=== PATIENT | male | born 1990 | race Caucasian/White ===

== ENCOUNTER 2017-04-06 11:55 | Emergency (ER) | payer BC, OTHER, SELFPAY ==
[~2017-04-06] VITALS: Ht 180.3 cm; Wt 77.3 kg
[2017-04-06 12:06] VITALS: BP 154/87
[2017-04-06] MEDS ORDERED: NS 1,000 ML IV ONE (12:30)
[2017-04-06] MEDS ORDERED: ADACEL/BOOSTRIX VACCINE (DIPHTH/PERTUSS/ACELL/TETANUS)0.5ML SYR (90715) IM ONE (12:30)
[2017-04-06] MEDS ORDERED: ceFAZolin SOD 1 GM in D5W MINI-BAG PLUS 50 ML IV ONE ×2 (12:30→13:30)
[2017-04-06] MEDS ORDERED: ceFAZolin 1GM INJ (J0690) As Ordered ONE (12:50)
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
[2017-04-06] MEDS: MORPHINE 4 MG/ML 1ML SYRINGE IV PRN ×2 (13:20→13:30)
[2017-04-06 13:49] LABS: INR 1.04
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
[2017-04-06 13:55] LABS: ALBUMIN 3.9 GM/DL (3.2-5.2); ALBUMIN/GLOBULIN RATIO 1.26 (1.00-1.93); ALKALINE PHOSPHATASE 77 U/L (45-117); ALT/SGPT 29 U/L (12-78); ANION GAP 8 MEQ/L (8-16); AST/SGOT 18 U/L (15-37); BILIRUBIN,DIRECT 0.2 MG/DL (0.0-0.2); BILIRUBIN,TOTAL 0.7 MG/DL (0.2-1.0); BLOOD UREA NITROGEN 16 MG/DL (7-18); CALCIUM LEVEL 8.9 MG/DL (8.5-10.1); CARBON DIOXIDE LEVEL 25 MEQ/L (21-32); CHLORIDE LEVEL 110 MEQ/L (98-107); CREATININE FOR GFR 1.15 MG/DL (0.70-1.30); GLOMERULAR FILTRATION RATE > 60.0 (>60); GLUCOSE, FASTING 104 MG/DL (70-105); POTASSIUM SERUM 3.8 MEQ/L (3.5-5.1); SODIUM LEVEL 143 MEQ/L (136-145)
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
[2017-04-06] MEDS ORDERED: LIDOCAINE 2% MDV 20 ML VIAL SC ONE (14:00)
[2017-04-06 14:04] LABS: ADD MANUAL DIFFER YES; MEAN CORPUSCULAR HEMOGLOBIN 31.9 pg (27.0-33.0); MEAN CORPUSCULAR HGB CONC 36.2 g/dl (32.0-36.5); PLATELET COUNT, AUTOMATED 291 k/mm3 (150-450); RED CELL DISTRIBUTION WIDTH 11.9 % (11.5-14.5)
[2017-04-06 14:22] LABS: BANDS 2 % (< 11)
[2017-04-06] MEDS ORDERED: MORPHINE 4 MG/ML 1ML SYRINGE IV ONE (14:30)
[2017-04-06] MEDS ORDERED: POLYSPORIN OPHTH OINT 3.5 GM As Ordered ONE (14:32)
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
[2017-04-06] MEDS ORDERED: PERC5TAB12 PO (14:52)
[2017-04-06] MEDS ORDERED: KEFL500C17 PO (14:52)
== END 2017-04-06 15:10 | disposition home or self-care (01) ==
LOC: EDBD 11:55 → M ED 11:55
DX: S92.345A Nondisplaced fracture of fourth metatarsal bone, left foot, initial encounter for closed fracture (principal); S91.012A Laceration without foreign body, left ankle, initial encounter; Z72.0 Tobacco use; V28.0XXA Motorcycle driver injured in noncollision transport accident in nontraffic accident, initial encounter; Y92.410 Unspecified street and highway as the place of occurrence of the external cause; Y93.89 Activity, other specified; Y99.9 Unspecified external cause status
CPT/HCPCS: 12002; 70450; 72125; 73110; 73590; 73610; 73630; 73700; 80048; 80076; 85025; 85610; 90471; 90715; 96361; 96365; 96375; 96376; 99284; G0480; J0690

== ENCOUNTER 2017-04-13 10:19 | Inpatient (IN) | payer OTHER ==
[~2017-04-13] VITALS: Ht 180.3 cm; Wt 74.7 kg
[~2017-04-13 10:19] MED LIST: KEFL500C17 PO; PERC5TAB12 PO
[2017-04-13] MEDS ORDERED: NS 1,000 ML IV ONE (11:30)
[2017-04-13] MEDS ORDERED: MORPHINE 4 MG/ML 1ML SYRINGE IV ONE (11:30)
[2017-04-13 12:10] LABS: BASO % 0.4 % (0.0-1.0); EOS # 0.1 K/mm3 (0.0-0.50); EOS % 1.5 % (0.0-3.0); LARGE UNSTAINED CELL # 0.1 K/mm3 (0.0-0.4); LARGE UNSTAINED CELL % 1.3 % (0.0-4.0); LYMPH # 1.4 K/mm3 (1.5-6.5); LYMPH % 18.9 % (24.0-44.0); MEAN CORPUSCULAR HEMOGLOBIN 31.8 pg (27.0-33.0); MEAN CORPUSCULAR HGB CONC 35.8 g/dl (32.0-36.5); MEAN CORPUSCULAR VOLUME 88.9 fl (80.0-96.0); MONO # 0.5 K/mm3 (0.0-0.8); MONO % 6.3 % (0.0-5.0); NEUTROPHILS # 5.4 K/mm3 (1.8-7.7); NEUTROPHILS % 71.6 % (36.0-66.0); PLATELET COUNT, AUTOMATED 314 k/mm3 (150-450); RED CELL DISTRIBUTION WIDTH 12.2 % (11.5-14.5); WHITE BLOOD COUNT 7.5 K/mm3 (4.0-10.0)
[2017-04-13] MEDS ORDERED: VANCOMYCIN HCL 1,000 MG, VIAL MATE ADAPTER 1 EACH in D5W 250 ML IV ONE ×2 (13:00→14:45)
[2017-04-13 13:21] LABS: ANION GAP 8 MEQ/L (8-16); BLOOD UREA NITROGEN 18 MG/DL (7-18); CALCIUM LEVEL 8.8 MG/DL (8.5-10.1); CARBON DIOXIDE LEVEL 28 MEQ/L (21-32); CHLORIDE LEVEL 103 MEQ/L (98-107); CREATININE FOR GFR 0.87 MG/DL (0.70-1.30); GLOMERULAR FILTRATION RATE > 60.0 (>60); GLUCOSE, FASTING 87 MG/DL (70-105); POTASSIUM SERUM 4.3 MEQ/L (3.5-5.1); SODIUM LEVEL 139 MEQ/L (136-145)
[2017-04-13] MEDS ORDERED: PERC5TAB12 PO (14:07)
[2017-04-13] MEDS ORDERED: CEPH500C PO (14:07)
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
[2017-04-13] MEDS ORDERED: ONDANSETRON 4MG/2ML VIAL (J2405) IV PRN (14:45)
[2017-04-13] MEDS ORDERED: MAXIMUM TYLENOL (APAP) = 4GM/24H XX SCH (14:45)
[2017-04-13] MEDS ORDERED: ACETAMINOPHEN TAB 650MG DOSE (2X325MG) PO PRN (14:45)
[2017-04-13] MEDS ORDERED: NORCO, ANEXSIA 5/325MG TABLET (HYDROcodone/ACETAMINOPHEN) PO PRN ×2 (14:45)
[2017-04-13] MEDS: MORPHINE 4 MG/ML 1ML SYRINGE IV PRN ×2 (17:17→20:28)
[2017-04-13 17:30] VITALS: BP 177/92
[2017-04-13] MEDS: PERCOCET 5MG/325MG TAB PO PRN ×2 (18:17→22:45)
[2017-04-13] MEDS: ENOXAPARIN 40 MG/0.4 ML SYRINGE (J1650) SC SCH (18:35)
--- NOTE | 2017-04-13 18:52 | PHACANCOPD ---
PHARMACY VANCOMYCIN DOSING Pt Demographics Demographics Patient Age:26 , Weight:77.270 , Gender: male Adjusted Body Weight Date: 04/13/17, Adjusted Body Weight: [77.2] Kg Events Past 24 Hours Events Past 24 Hours: NO: Dialysis, Diuretic Therapy, Change in CrCl, Fever, Elevation in WBC, Pending Diagnostics, Pending Procedures, Other Vancomycin Vancomycin indication: CELLULITIS Vancomycin Target Ranges: 15-20 mcg/ml Vancomycin Load Y/N: Yes Load Dose Date Time Vancomycin Load Dose: 2G Date: 04/13/17 Time: 1800 COMPLETED Vancomycin Dose Date: 04/13/17. Current Vancomycin Dose: [1G IV Q8H] Intermittent Dosing?: No Labs Labs Item Value Date Time Creatinine 0.87 MG/DL 04/13/17 1240 C-Reactive Protein, Quantitative 2.19 MG/DL H 04/13/17 1240 Vital Signs Label Value Date Time Patient Temperature 99.4 degrees F 04/13/17 1730 Temperature Source Temporal 04/13/17 1730 Micro Microbiology 04/13/17 Blood Culture, Received Pending 04/13/17 Blood Culture, Received Pending Creatinine Clearance Date:04/13/17. Creatinine Clearance: [139.4ML/MIN.]. Pending Labs BLOOD CULTURE, vancomycin trough 04/14 @1600 Assessment and Plan Maintaining Current Dose?: Yes Reason for dose change: Change in serum Cr, No Dose Change Pharmacist Note Pharmacist Note Date: 04/13/17. Pharmacist note: Pt is a 26 year old male being treated for cellulitis goal trough 15-20mcg/ml with no history of vancomycin therapy here at [facility]. Pt received 1g in the ER 04/13 @1300 and another 1g in Peds @1800 to complete his loading. Maintenance therapy will consist of 1g iv q8 hours starting 04/14/17 @0100. A trough is scheduled for 1600 04/14. We will continue to monitor and adjust dose as needed. ASHLYN STERLING PHARMACY Apr 13, 2017 18:52
[2017-04-13 20:00] VITALS: BP 168/91
[2017-04-14] VITALS: BP 138/78
[2017-04-14] MEDS: VANCOMYCIN HCL 1,000 MG, VIAL MATE ADAPTER 1 EACH in D5W 250 ML IV SCH ×3 (00:36→23:05)
[2017-04-14] MEDS: PERCOCET 5MG/325MG TAB PO PRN ×3 (06:25→17:35)
[2017-04-14 07:22] LABS: MEAN CORPUSCULAR HEMOGLOBIN 31.7 pg (27.0-33.0); MEAN CORPUSCULAR HGB CONC 35.1 g/dl (32.0-36.5); MEAN CORPUSCULAR VOLUME 90.2 fl (80.0-96.0); WHITE BLOOD COUNT 7.1 K/mm3 (4.0-10.0)
[2017-04-14 07:45] LABS: ALBUMIN 3.6 GM/DL (3.2-5.2); ALKALINE PHOSPHATASE 73 U/L (45-117); ALT/SGPT 36 U/L (12-78); ANION GAP 8 MEQ/L (8-16); AST/SGOT 19 U/L (15-37); BILIRUBIN,TOTAL 0.5 MG/DL (0.2-1.0); BLOOD UREA NITROGEN 14 MG/DL (7-18); CARBON DIOXIDE LEVEL 29 MEQ/L (21-32); CHLORIDE LEVEL 105 MEQ/L (98-107); CREATININE FOR GFR 0.78 MG/DL (0.70-1.30); GLOMERULAR FILTRATION RATE > 60.0 (>60); GLUCOSE, FASTING 94 MG/DL (70-105); POTASSIUM SERUM 4.4 MEQ/L (3.5-5.1); SODIUM LEVEL 142 MEQ/L (136-145); TOTAL PROTEIN 6.6 GM/DL (6.4-8.2)
[2017-04-14 08:00] VITALS: BP 158/96
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
[2017-04-14] MEDS: ENOXAPARIN 40 MG/0.4 ML SYRINGE (J1650) SC SCH (08:41)
[2017-04-14] MEDS: MORPHINE 4 MG/ML 1ML SYRINGE IV PRN (08:42)
[2017-04-14 16:00] VITALS: BP 142/75
[2017-04-14] MEDS ORDERED: VANCOMYCIN HCL 1,000 MG, VIAL MATE ADAPTER 1 EACH in D5W 250 ML IV ONE ×2 (17:00→18:00)
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
[2017-04-15] VITALS: BP 129/85
[2017-04-15] MEDS: VANCOMYCIN HCL 1,000 MG, VIAL MATE ADAPTER 1 EACH in D5W 250 ML IV SCH ×4 (05:29→23:44)
[2017-04-15] MEDS: PERCOCET 5MG/325MG TAB PO PRN ×5 (05:38→23:44)
[2017-04-15 07:41] LABS: MEAN CORPUSCULAR HEMOGLOBIN 31.6 pg (27.0-33.0); MEAN CORPUSCULAR HGB CONC 35.8 g/dl (32.0-36.5); MEAN CORPUSCULAR VOLUME 88.2 fl (80.0-96.0); RED CELL DISTRIBUTION WIDTH 11.8 % (11.5-14.5); WHITE BLOOD COUNT 5.8 K/mm3 (4.0-10.0)
[2017-04-15 07:55] LABS: ALBUMIN 3.6 GM/DL (3.2-5.2); ALKALINE PHOSPHATASE 76 U/L (45-117); ALT/SGPT 42 U/L (12-78); ANION GAP 5 MEQ/L (8-16); AST/SGOT 24 U/L (15-37); BILIRUBIN,TOTAL 0.4 MG/DL (0.2-1.0); BLOOD UREA NITROGEN 15 MG/DL (7-18); CALCIUM LEVEL 9.3 MG/DL (8.5-10.1); CARBON DIOXIDE LEVEL 31 MEQ/L (21-32); CHLORIDE LEVEL 104 MEQ/L (98-107); CREATININE FOR GFR 0.77 MG/DL (0.70-1.30); GLOMERULAR FILTRATION RATE > 60.0 (>60); GLUCOSE, FASTING 96 MG/DL (70-105); MAGNESIUM LEVEL 2.2 MG/DL (1.8-2.4); POTASSIUM SERUM 4.1 MEQ/L (3.5-5.1); SODIUM LEVEL 140 MEQ/L (136-145); TOTAL PROTEIN 7.2 GM/DL (6.4-8.2)
[2017-04-15 08:00] VITALS: BP 136/75
[2017-04-15] MEDS: MORPHINE 4 MG/ML 1ML SYRINGE IV PRN (08:15)
[2017-04-15] MEDS: ENOXAPARIN 40 MG/0.4 ML SYRINGE (J1650) SC SCH (08:16)
[2017-04-15 12:05] VITALS: BP 131/87
[2017-04-15 15:21] VITALS: BP 140/80
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
[2017-04-15 20:00] VITALS: BP 131/93
[2017-04-16] VITALS: BP 168/96
[2017-04-16] MEDS: MORPHINE 4 MG/ML 1ML SYRINGE IV PRN ×2 (01:39→08:05)
[2017-04-16 04:00] VITALS: BP 140/70
[2017-04-16] MEDS: VANCOMYCIN HCL 1,000 MG, VIAL MATE ADAPTER 1 EACH in D5W 250 ML IV SCH ×3 (05:13→16:29)
[2017-04-16] MEDS: PERCOCET 5MG/325MG TAB PO PRN ×4 (05:19→22:10)
[2017-04-16 07:04] LABS: MEAN CORPUSCULAR HEMOGLOBIN 31.1 pg (27.0-33.0); MEAN CORPUSCULAR HGB CONC 35.3 g/dl (32.0-36.5); MEAN CORPUSCULAR VOLUME 88.1 fl (80.0-96.0); RED CELL DISTRIBUTION WIDTH 11.7 % (11.5-14.5); WHITE BLOOD COUNT 5.4 K/mm3 (4.0-10.0)
[2017-04-16 07:20] LABS: ALBUMIN 3.4 GM/DL (3.2-5.2); ALBUMIN/GLOBULIN RATIO 0.94 (1.00-1.93); ALKALINE PHOSPHATASE 77 U/L (45-117); ALT/SGPT 40 U/L (12-78); ANION GAP 6 MEQ/L (8-16); AST/SGOT 25 U/L (15-37); BILIRUBIN,TOTAL 0.5 MG/DL (0.2-1.0); BLOOD UREA NITROGEN 16 MG/DL (7-18); CALCIUM LEVEL 8.9 MG/DL (8.5-10.1); CARBON DIOXIDE LEVEL 32 MEQ/L (21-32); CHLORIDE LEVEL 106 MEQ/L (98-107); CREATININE FOR GFR 0.83 MG/DL (0.70-1.30); GLOMERULAR FILTRATION RATE > 60.0 (>60); GLUCOSE, FASTING 91 MG/DL (70-105); MAGNESIUM LEVEL 2.1 MG/DL (1.8-2.4); SODIUM LEVEL 144 MEQ/L (136-145)
[2017-04-16 08:00] VITALS: BP 129/85
[2017-04-16] MEDS: ENOXAPARIN 40 MG/0.4 ML SYRINGE (J1650) SC SCH (09:09)
[2017-04-16 12:00] VITALS: BP 137/91
--- NOTE | 2017-04-16 12:13 | PHACANCOPD ---
PHARMACY VANCOMYCIN DOSING Pt Demographics Demographics Patient Age:26 , Weight:74.695 , Gender: male Adjusted Body Weight Date: 04/13/17, Adjusted Body Weight: [77.2] Kg Vancomycin Vancomycin indication: CELLULITIS Vancomycin Target Ranges: 15-20 mcg/ml Vancomycin Load Y/N: Yes Load Dose Date Time Vancomycin Load Dose: 2G Date: 04/13/17 Time: 1800 COMPLETED Vancomycin Dose Date: 04/13/17. Current Vancomycin Dose: [1G IV Q8H] Intermittent Dosing?: No Labs Micro Microbiology 04/13/17 Blood Culture - Preliminary, Resulted No Growth after 72 hours. All specime... 04/13/17 Blood Culture - Preliminary, Resulted No Growth after 72 hours. All specime... Creatinine Clearance Date:04/13/17. Creatinine Clearance: [139.4ML/MIN.]. Pending Labs BLOOD CULTURE, vancomycin trough 04/14 @1600 Assessment and Plan Maintaining Current Dose?: Yes Reason for dose change: No Dose Change Pharmacist Note Pharmacist Note 04/16/17: A follow-up trough has been scheduled to be drawn tonight @1600 to ensure that the patient is remaining therapeutic. We will continue to monitor and make further adjustments if needed. Date: 04/13/17. Pharmacist note: Pt is a 26 year old male being treated for cellulitis goal trough 15-20mcg/ml with no history of vancomycin therapy here at [facility]. Pt received 1g in the ER 04/13 @1300 and another 1g in Peds @1800 to complete his loading. Maintenance therapy will consist of 1g iv q8 hours starting 04/14/17 @0100. A trough is scheduled for 1600 04/14. We will continue to monitor and adjust dose as needed. HARLEY TELLO PHARMACY Apr 16, 2017 12:13
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
[2017-04-16 16:00] VITALS: BP 133/84
[2017-04-16 20:00] VITALS: BP 152/88
[2017-04-17] VITALS: BP 131/73
[2017-04-17] MEDS ORDERED: VANCOMYCIN HCL 1,000 MG, VIAL MATE ADAPTER 1 EACH in D5W 250 ML IV SCH (01:00)
[2017-04-17] MEDS: CLINDAMYCIN 150 MG CAP PO SCH ×2 (02:14→06:36)
[2017-04-17] MEDS: PERCOCET 5MG/325MG TAB PO PRN ×2 (02:40→07:51)
[2017-04-17 04:00] VITALS: BP 125/72
[2017-04-17 07:20] LABS: MEAN CORPUSCULAR HEMOGLOBIN 31.6 pg (27.0-33.0); MEAN CORPUSCULAR HGB CONC 35.5 g/dl (32.0-36.5); MEAN CORPUSCULAR VOLUME 88.9 fl (80.0-96.0); RED CELL DISTRIBUTION WIDTH 11.7 % (11.5-14.5); WHITE BLOOD COUNT 5.6 K/mm3 (4.0-10.0)
[2017-04-17 07:38] LABS: ALBUMIN 3.6 GM/DL (3.2-5.2); ALBUMIN/GLOBULIN RATIO 1.09 (1.00-1.93); ALKALINE PHOSPHATASE 82 U/L (45-117); ALT/SGPT 41 U/L (12-78); ANION GAP 3 MEQ/L (8-16); AST/SGOT 25 U/L (15-37); BILIRUBIN,TOTAL 0.4 MG/DL (0.2-1.0); BLOOD UREA NITROGEN 18 MG/DL (7-18); CARBON DIOXIDE LEVEL 34 MEQ/L (21-32); CHLORIDE LEVEL 102 MEQ/L (98-107); CREATININE FOR GFR 0.93 MG/DL (0.70-1.30); GLOMERULAR FILTRATION RATE > 60.0 (>60); GLUCOSE, FASTING 87 MG/DL (70-105); MAGNESIUM LEVEL 2.1 MG/DL (1.8-2.4); POTASSIUM SERUM 4.1 MEQ/L (3.5-5.1); SODIUM LEVEL 139 MEQ/L (136-145); TOTAL PROTEIN 6.9 GM/DL (6.4-8.2)
[2017-04-17] MEDS ORDERED: CULT10CA2 PO (07:57)
[2017-04-17] MEDS ORDERED: CLEO150C PO (07:57)
[2017-04-17 08:00] VITALS: BP 133/86
[2017-04-17] MEDS ORDERED: ASPI325T PO (08:01)
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
== END 2017-04-17 10:25 | disposition home or self-care (01) | DRG 383 ==
LOC: M ED 10:19 → OBSVTOIN 13:28 → M ED INP 13:28 → M PED 16:56 → INTOOBSV 04-15 18:32 → OBSVTOIN 04-15 18:32 → M PED 04-16 15:38
PROVIDERS: ADMIT Internal Medicine; ATTEND Hospitalist
DX: L03.116 Cellulitis of left lower limb (principal); F19.21 Other psychoactive substance dependence, in remission; S90.32XD Contusion of left foot, subsequent encounter; S92.212D Displaced fracture of cuboid bone of left foot, subsequent encounter for fracture with routine healing; S92.222D Displaced fracture of lateral cuneiform of left foot, subsequent encounter for fracture with routine healing; S92.342D Displaced fracture of fourth metatarsal bone, left foot, subsequent encounter for fracture with routine healing; S92.332D Displaced fracture of third metatarsal bone, left foot, subsequent encounter for fracture with routine healing; S92.322D Displaced fracture of second metatarsal bone, left foot, subsequent encounter for fracture with routine healing; V86.59XD Driver of other special all-terrain or other off-road motor vehicle injured in nontraffic accident, subsequent encounter; Z88.0 Allergy status to penicillin; Z88.2 Allergy status to sulfonamides; Z88.1 Allergy status to other antibiotic agents; Y99.9 Unspecified external cause status

== ENCOUNTER → 2017-09-24 | Outpatient (CLI) | payer OTHER, SELFPAY | LOC: M RAD 08:49 | DX: S92.215D Nondisplaced fracture of cuboid bone of left foot, subsequent encounter for fracture with routine healing (principal); M24.875 Other specific joint derangements left foot, not elsewhere classified; M79.672 Pain in left foot; X58.XXXD Exposure to other specified factors, subsequent encounter; Y92.89 Other specified places as the place of occurrence of the external cause; Y93.89 Activity, other specified; Y99.8 Other external cause status | CPT/HCPCS: 73700 ==

== ENCOUNTER 2020-08-29 22:24 | Emergency (ER) | payer MEDICAID, OTHER, SELFPAY ==
[~2020-08-29] VITALS: Ht 177.8 cm; Wt 86.4 kg
[~2020-08-29 22:24] MED LIST changes: +ASPI-1 PO; +CEPH500C PO; +CLEO150C PO; +CULT10CA2 PO
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
[2020-08-30 01:00] VITALS: BP 138/81
== END 2020-08-30 01:03 | disposition home or self-care (01) ==
LOC: M ED 22:24
DX: S20.211A Contusion of right front wall of thorax, initial encounter (principal); V47.5XXA Car driver injured in collision with fixed or stationary object in traffic accident, initial encounter; Y92.410 Unspecified street and highway as the place of occurrence of the external cause; F43.10 Post-traumatic stress disorder, unspecified; Z88.0 Allergy status to penicillin; Z88.1 Allergy status to other antibiotic agents; Z88.2 Allergy status to sulfonamides; F12.20 Cannabis dependence, uncomplicated

== ENCOUNTER → 2024-08-26 | Outpatient (CLI) | payer OTHER ==
[~2024-08-26] MED LIST changes: +AMLO1TAB25 PO; +FAMO40TA3 PO; +FLUO-365; +PAXI10TA13
== END ==
LOC: M OUTALCOH 13:16
PROVIDERS: ATTEND Psychiatry & Neurology Psychiatry
DX: F10.20 Alcohol dependence, uncomplicated (principal); F12.10 Cannabis abuse, uncomplicated; Z72.0 Tobacco use

== ENCOUNTER 2024-09-01 15:35 | Outpatient (RCR) | payer OTHER | END 2024-09-02 | LOC: M OUTALCOH 15:35 | PROVIDERS: ATTEND Psychiatry & Neurology Psychiatry | DX: F10.20 Alcohol dependence, uncomplicated (principal); F12.10 Cannabis abuse, uncomplicated; Z72.0 Tobacco use ==

== ENCOUNTER 2024-09-20 16:00 | Outpatient (RCR) | payer OTHER | END 2024-09-30 | LOC: M OUTALCOH 16:00 | PROVIDERS: ATTEND Psychiatry & Neurology Psychiatry | DX: F10.20 Alcohol dependence, uncomplicated (principal); F12.10 Cannabis abuse, uncomplicated; Z72.0 Tobacco use ==

== ENCOUNTER 2024-09-22 10:00 | Outpatient (RCR) | payer OTHER | END 2024-09-30 | LOC: M OUTALCOH 10:00 | PROVIDERS: ATTEND Psychiatry & Neurology Psychiatry | DX: F10.20 Alcohol dependence, uncomplicated (principal); F12.10 Cannabis abuse, uncomplicated; Z72.0 Tobacco use ==

== ENCOUNTER 2025-02-01 23:19 | Emergency (ER) | payer OTHER, MEDICAID ==
[~2025-02-01] VITALS: Ht 180.3 cm; Wt 83.6 kg
[2025-02-02] MEDS: NS (Normal Saline) 0.9% 1,000 ML IV ONE (00:28)
[2025-02-02] MEDS: KETOROLAC 30 MG/ML 1 ML VIAL IV ONE (00:29)
[2025-02-02] MEDS: ONDANSETRON 4MG 2ML VIAL IV ONE (00:29)
[2025-02-02] MEDS: MORPHINE 2 MG/ML 1 ML VIAL IV PRN (00:30)
[2025-02-02 00:57] LABS: BASO # 0.1 10^3/uL (0.0-0.2); BASO % 1.0 % (0.0-1.0); EOS # 0.1 10^3/uL (0.0-0.5); EOS % 1.2 % (0.0-3.0); LYMPH # 1.5 10^3/uL (1.5-5.0); LYMPH % 26.1 % (24.0-44.0); MONO # 0.6 10^3/uL (0.0-0.8); MONO % 10.8 % (2.0-8.0); NEUTROPHILS # 3.5 10^3/uL (1.5-8.5); NEUTROPHILS % 60.7 % (36.0-66.0); PLATELET COUNT, AUTOMATED 283 10^3/uL (150-450)
[2025-02-02 01:20] LABS: AMPHETAMINES LEVEL URINE NEGATIVE (NEGATIVE); BARBITURATES URINE NEGATIVE (NEGATIVE); BENZODIAZEPINES URINE NEGATIVE (NEGATIVE); METHADONE URINE NEGATIVE (NEGATIVE); OPIATES URINE NEGATIVE (NEGATIVE); PHENCYCLIDINE URINE NEGATIVE (NEGATIVE)
[2025-02-02 01:21] LABS: CANNABINOIDS URINE POSITIVE (NEGATIVE); COCAINE METABOLITE URINE POSITIVE (NEGATIVE); ETHYL ALCOHOL (ETHANOL) 0.070 % (0.000-0.010)
[2025-02-02 01:23] LABS: ALT/SGPT 32 U/L (7.0-40); AST/SGOT 31 U/L (<34); CALCIUM LEVEL 8.9 MG/DL (8.5-10.1); CARBON DIOXIDE LEVEL 19 MMOL/L (20-31); CHLORIDE LEVEL 102 MMOL/L (98-107); CREATININE FOR GFR 0.84 MG/DL (0.70-1.30); GLOMERULAR FILTRATION RATE > 90.0 (>60); POTASSIUM SERUM 4.2 MMOL/L (3.5-5.1); SODIUM LEVEL 139 MMOL/L (136-145)
[2025-02-02] MEDS ORDERED: TRAM50TA2 PO (03:07)
[2025-02-02] MEDS: traMADol 50 MG TAB PO ONE (03:38)
[2025-02-02 03:51] VITALS: BP 172/94; TEMP 98.2; O2SAT 98
== END 2025-02-02 03:54 | disposition home or self-care (01) ==
LOC: M ED 23:19
DX: S82.132A Displaced fracture of medial condyle of left tibia, initial encounter for closed fracture (principal); S82.122A Displaced fracture of lateral condyle of left tibia, initial encounter for closed fracture; M25.462 Effusion, left knee; V20.49XA Other motorcycle driver injured in collision with pedestrian or animal in traffic accident, initial encounter; Y92.410 Unspecified street and highway as the place of occurrence of the external cause; Y93.9 Activity, unspecified; Y99.9 Unspecified external cause status; Z79.899 Other long term (current) drug therapy; Z88.0 Allergy status to penicillin; Z88.2 Allergy status to sulfonamides
CPT/HCPCS: 70450; 71045; 72125; 73700; 74177; 80053; 80307; 82077; 83690; 85025; 93041; 96374; 96375; 99285; J1885; J2405

== ENCOUNTER → 2025-02-24 | Outpatient (CLI) | payer MEDICAID, SELFPAY ==
[~2025-02-24] MED LIST changes: +TRAM50TA2 PO
== END ==
LOC: M SOG 06:53
PROVIDERS: ATTEND Physician Assistant
DX: S82.145A Nondisplaced bicondylar fracture of left tibia, initial encounter for closed fracture (principal); Y93.9 Activity, unspecified; Y92.9 Unspecified place or not applicable

== ENCOUNTER → 2025-03-31 | Outpatient (CLI) | payer MEDICAID | LOC: M SOG 07:16 | PROVIDERS: ATTEND Physician Assistant | DX: S82.145A Nondisplaced bicondylar fracture of left tibia, initial encounter for closed fracture (principal) ==

== ENCOUNTER → 2025-04-10 | Outpatient (CLI) | payer MEDICAID | LOC: M SOG 08:09 | PROVIDERS: ATTEND Physician Assistant | DX: S82.145A Nondisplaced bicondylar fracture of left tibia, initial encounter for closed fracture (principal); Z53.9 Procedure and treatment not carried out, unspecified reason ==

== ENCOUNTER → 2025-04-13 | Outpatient (CLI) | payer MEDICAID | LOC: M SOG 07:25 | PROVIDERS: ATTEND Physician Assistant | DX: S82.145A Nondisplaced bicondylar fracture of left tibia, initial encounter for closed fracture (principal) ==

== ENCOUNTER → 2025-05-16 | Outpatient (CLI) | payer MEDICAID, OTHER | LOC: M SOG 07:19 | PROVIDERS: ATTEND Orthopaedic Surgery | DX: S82.145D Nondisplaced bicondylar fracture of left tibia, subsequent encounter for closed fracture with routine healing (principal); W18.30XD Fall on same level, unspecified, subsequent encounter ==

== ENCOUNTER → 2025-06-26 | Outpatient (CLI) | payer OTHER | LOC: M PLAIMG 10:39 | PROVIDERS: ATTEND Orthopaedic Surgery | DX: S82.145D Nondisplaced bicondylar fracture of left tibia, subsequent encounter for closed fracture with routine healing (principal); W18.30XD Fall on same level, unspecified, subsequent encounter ==

== ENCOUNTER → 2025-06-26 | Outpatient (CLI) | payer OTHER | LOC: M PLAIMG 10:42 | PROVIDERS: ATTEND Physician Assistant | DX: R05.9 Cough, unspecified (principal); R06.02 Shortness of breath ==

== ENCOUNTER → 2025-06-30 | Outpatient (CLI) | payer OTHER ==
[2025-06-30 13:48] LABS: BASO # 0.0 10^3/uL (0.0-0.2); BASO % 0.6 % (0.0-1.0); EOS # 0.1 10^3/uL (0.0-0.5); EOS % 1.2 % (0.0-3.0); LYMPH # 1.6 10^3/uL (1.5-5.0); LYMPH % 25.0 % (24.0-44.0); MONO # 0.6 10^3/uL (0.0-0.8); MONO % 9.7 % (2.0-8.0); NEUTROPHILS # 4.0 10^3/uL (1.5-8.5); NEUTROPHILS % 63.0 % (36.0-66.0); PLATELET COUNT, AUTOMATED 295 10^3/uL (150-450)
[2025-06-30 14:11] LABS: INR 0.94
[2025-06-30 14:20] LABS: ALT/SGPT 38 U/L (7.0-40); AST/SGOT 29 U/L (<34); C REACTIVE PROTEIN QUANTITATIV < 0.50 MG/DL (<1.0); CALCIUM LEVEL 9.2 MG/DL (8.5-10.1); CARBON DIOXIDE LEVEL 29 MMOL/L (20-31); CHLORIDE LEVEL 101 MMOL/L (98-107); CREATININE FOR GFR 0.91 MG/DL (0.70-1.30); GLOMERULAR FILTRATION RATE > 90.0 (>60); POTASSIUM SERUM 4.2 MMOL/L (3.5-5.1); SODIUM LEVEL 139 MMOL/L (136-145)
== END ==
LOC: M LAB 13:06
PROVIDERS: ATTEND Orthopaedic Surgery
DX: S83.512A Sprain of anterior cruciate ligament of left knee, initial encounter (principal); W18.30XA Fall on same level, unspecified, initial encounter; Y92.009 Unspecified place in unspecified non-institutional (private) residence as the place of occurrence of the external cause

== ENCOUNTER 2025-07-18 13:34 | Emergency (ER) | payer OTHER ==
[~2025-07-18] VITALS: Ht 180.3 cm; Wt 96.0 kg
[2025-07-18] MEDS: ACETAMINOPHEN 325 MG TAB PO ONE (13:59)
[2025-07-18 14:20] VITALS: BP 154/99; TEMP 98.1; O2SAT 94
== END 2025-07-18 14:37 | disposition home or self-care (01) ==
LOC: M ED 13:34
DX: S62.306A Unspecified fracture of fifth metacarpal bone, right hand, initial encounter for closed fracture (principal); W01.0XXA Fall on same level from slipping, tripping and stumbling without subsequent striking against object, initial encounter; Y92.9 Unspecified place or not applicable; Y93.9 Activity, unspecified; Y99.9 Unspecified external cause status; J45.909 Unspecified asthma, uncomplicated; Z88.0 Allergy status to penicillin; Z88.1 Allergy status to other antibiotic agents; Z88.2 Allergy status to sulfonamides

== ENCOUNTER → 2025-07-21 | Outpatient (CLI) | payer OTHER | LOC: M SOG 09:56 | PROVIDERS: ATTEND Physician Assistant | DX: S62.366A Nondisplaced fracture of neck of fifth metacarpal bone, right hand, initial encounter for closed fracture (principal); W18.30XA Fall on same level, unspecified, initial encounter; Y92.009 Unspecified place in unspecified non-institutional (private) residence as the place of occurrence of the external cause ==

== ENCOUNTER → 2025-08-01 | Outpatient (CLI) | payer OTHER | LOC: M SOG 07:36 | PROVIDERS: ATTEND Physician Assistant | DX: S62.366A Nondisplaced fracture of neck of fifth metacarpal bone, right hand, initial encounter for closed fracture (principal) ==